=== PATIENT | female | born 1990 | race Asian ===

== ENCOUNTER 2017-04-24 03:30 | Emergency (ER) | payer OTHER ==
[~2017-04-24] VITALS: Ht 170.2 cm; Wt 69.4 kg
[~2017-04-24 03:30] MED LIST: BENADRYL ALLERG25 M1 PO; CALAMINE LOTIO177 ML TP; PREDNISONE20 MG ORAL
[2017-04-24] MEDS ORDERED: HYDROCORTISONE-30 GM TOPIC (04:20)
[2017-04-24 04:27] VITALS: BP 136/99
--- NOTE | 2017-04-24 04:44 | Emergency Room Report ---
History of Present Illness General Chief Complaint: Skin Rash/Abscess Source: Patient Present Illness HPI Patient presents with complaints of rash involving the fold of the right neck area and a small area at the left neck region Denies any shortness of breath Denies any fevers or chills Denies any change in medications Patient has been seen by culinary specialist 2 years ago Has not found a source for the reaction Denies any difficulty breathing or swallowing Denies any change in voice Patient reports taking one steroid pill and Benadryl about 1 hour prior to arrival as the itching persisted she presents to the ER Allergies: Coded Allergies: No Known Allergies (Unverified , 01/06/15) Patient History Past Medical History: see triage record Pertinent Family History: none Last Menstrual Period: last month Reviewed Nursing Documentation: PMH: Agreed, PSxH: Agreed Review of Systems All Other Systems: negative except mentioned in HPI Physical Exam Vital Signs Date Time Temp Pulse Resp B/P (MAP) Pulse Ox O2 Delivery O2 Flow Rate FiO2 04/24/17 03:32 97.8 72 16 136/99 96 Room Air 97.9 Sp02 EP Interpretation: reviewed, normal General Appearance: well appearing, no apparent distress Head: normocephalic, atraumatic Eyes: bilateral eye PERRL, bilateral eye EOMI ENT: normal pharynx, no angioedema Neck: supple, other - Area of rash involving the right side of the neck just at the fold between the neck and the clavicle region. The area is essentially irregular approximately 1-1/2 by half centimeter appears with some scaling centrally likely eczema-type appearance. Similar smaller area at the mid left neck, no obvious flaring of erythema no fluctuance Respiratory: lungs clear, normal breath sounds Cardiovascular #1: regular rate, rhythm Gastrointestinal: non tender Musculoskeletal: normal inspection Neurologic: alert, oriented x3, responsive Skin: other - As above Lymphatic: no adenopathy Medical Decision Making Diagnostic Impression: Primary Impression: rash ER Course The 2 areas in question are fairly well localized No signs of any systemic pathology at this time Patient has steroids orally and Benadryl Patient was provided with hydrocortisone ointment for the next several days She does require close outpatient follow-up with primary physician/dermatology Last Vital Signs Date Time Temp Pulse Resp B/P (MAP) Pulse Ox O2 Delivery O2 Flow Rate FiO2 04/24/17 04:27 97.8 16 136/99 96 Room Air 97.9 3/7/18 03:32 72 Status: improved Disposition: HOME, SELF-CARE Condition: Improved Scripts Hydrocortisone/Aloe Vera 1%* (HYDROCORTISONE-ALOE 1% CREAM*) Y Cr 1 APPLIC TOPIC Q12HR Y for Itching for 5 Days, #30 GM Prov: MELISSA STEVENSON D.O. 04/24/17 Patient Instructions: Rash Additional Instructions: Patient is provided with the discharge instructions notified to follow up with primary doctor in the next 2-3 days otherwise return to the er with any worsening symptoms. Please note that this report is being documented using [employer] technology. This can lead to erroneous entry secondary to incorrect interpretation by the dictating instrument. MELISSA STEVENSON D.O. Apr 24, 2017 04:44
== END 2017-04-24 04:35 | disposition home or self-care (01) ==
LOC: EMR 04:21
DX: R21 Rash and other nonspecific skin eruption (principal)
CPT/HCPCS: 99283; J7512

== ENCOUNTER 2017-12-05 21:42 | Emergency (ER) | payer OTHER ==
[~2017-12-05] VITALS: Ht 170.2 cm; Wt 65.8 kg
[~2017-12-05 21:42] MED LIST changes: +HYDROCORTISONE-30 GM TOPIC
[2017-12-05 22:00] VITALS: BP 123/68
[2017-12-05] MEDS ORDERED: LOTRIMIN AF90 GM TP (22:29)
--- NOTE | 2017-12-05 22:30 | Emergency Room Report ---
History of Present Illness General Chief Complaint: Skin Rash/Abscess Source: Patient Present Illness HPI Is a 27-year-old female with no past medical patient. She presents with a rash to her neck has been ongoing for the last couple weeks now. Worse the last week. Did not see anything biting her. Not itching. No nausea no vomiting. She does have a history of eczema. No fever chills but no drainage. No allergic foreign body. Allergies: Coded Allergies: No Known Allergies (Unverified , 01/06/15) Patient History Past Medical History: none, see triage record, old chart reviewed Past Surgical History: other Pertinent Family History: none Social History: Denies: smoking Now: No Immunizations: other Reviewed Nursing Documentation: PMH: Agreed; PSxH: Agreed Nursing Documentation-PMH Past Medical History: No Stated History Review of Systems Eye: Denies: eye pain, blurred vision ENT: Denies: ear pain, nose congestion, throat swelling Respiratory: Denies: cough, shortness of breath Cardiovascular: Denies: chest pain, palpitations Gastrointestinal: Denies: abdominal pain, diarrhea, nausea, vomiting Musculoskeletal: Denies: back pain, joint pain Skin: Reports: rash Neurological: Denies: headache, numbness Endocrine: Denies: increased thirst, increased urine Hematologic/Lymphatic: Denies: easy bruising All Other Systems: negative except mentioned in HPI Physical Exam Vital Signs Date Time Temp Pulse Resp B/P (MAP) Pulse Ox O2 Delivery O2 Flow Rate FiO2 12/05/17 21:45 97.5 72 16 129/71 96 Room Air 97.5 vitals normal Sp02 EP Interpretation: reviewed, normal General Appearance: well appearing, no apparent distress, alert Head: normocephalic, atraumatic Eyes: bilateral eye PERRL, bilateral eye EOMI ENT: hearing grossly normal, normal pharynx Neck: full range of motion, supple, no meningismus Respiratory: chest non-tender, lungs clear, normal breath sounds Cardiovascular #1: regular rate, rhythm, no murmur Gastrointestinal: normal bowel sounds, non tender, no mass, no organomegaly, no bruit, non-distended Musculoskeletal: back normal, gait/station normal, normal range of motion Neurologic: alert, oriented x3 Psychiatric: mood/affect normal Skin: warm/dry, other - She has several large circular rash on the back of her neck bilaterally. Dry. No evidence of abscess. Medical Decision Making Diagnostic Impression: Primary Impression: Rash and other nonspecific skin eruption ER Course Patient with a rash to her neck. She did not say that she had anything that could cause an allergic reaction necklace. Could be tinea. No evidence of bacterial infection. We'll discharge home with antifungal medication. Last Vital Signs Date Time Temp Pulse Resp B/P (MAP) Pulse Ox O2 Delivery O2 Flow Rate FiO2 12/05/17 22:00 97.7 70 16 123/68 96 Room Air 97.7 Status: unchanged Disposition: HOME, SELF-CARE Condition: Stable Scripts Miconazole Nitrate (LOTRIMIN AF) 90 Gm Powder 90 GM TP TID, #90 GM Prov: Tono Serra MD 12/05/17 Referrals: [facility],REFERRING (PCP) Additional Instructions: Follow up with your doctor in 7 days. Return if worse. Tono Serra MD Dec 05, 2017 22:29
[2017-12-05 22:34] VITALS: BP 115/72
== END 2017-12-05 23:05 | disposition home or self-care (01) ==
LOC: EMR 22:01
DX: R21 Rash and other nonspecific skin eruption (principal)
CPT/HCPCS: 99282